=== PATIENT | male | born 1955 ===

== ENCOUNTER 2019-05-16 08:39 | Day surgery (SDC) | payer MEDICAID ==
[2019-05-16] MEDS ORDERED: Propofol 200 MG/20 ML SDV ONE ×2 (08:53→10:45)
[2019-05-16] MEDS ORDERED: fentaNYL 100 MCG/2 ML SDV ONE (08:53)
[2019-05-16] MEDS ORDERED: Midazolam 1 MG/ML 2 ML SDV ONE (08:53)
[2019-05-16] MEDS ORDERED: Lactated Ringers 1,000 ML IV SCH (09:15)
--- NOTE | 2019-05-16 15:22 | OR ---
DATE OF PROCEDURE: 05/16/2019 SURGEON: Filipe Locke MD PREOPERATIVE DIAGNOSIS: History of colon polyps. POSTOPERATIVE DIAGNOSIS: Polyps at 10 cm from the anal verge. PROCEDURES PERFORMED: Colonoscopy to the cecum with snare cautery polypectomy and biopsy resection of polyps at 10 cm from the anal verge. ANESTHESIA: IV anesthesia with monitored anesthesia care. INDICATION: This 63-year-old white male is referred for a colonoscopy because of a history of colon polyps. He says his last colonoscopic exam was done 3 years ago. I counseled him for the procedure, including risks and alternatives, and he gave his informed consent to proceed. DESCRIPTION OF PROCEDURE: The patient was placed in the left lateral decubitus position. IV anesthesia was administered by the anesthesia service. Time-out was held. A rectal exam was performed, which was unremarkable. The flexible video Olympus colonoscope was introduced through his anus, up his rectum and out his colon, all the way to the cecum. Once the cecum was reached, the scope was slowly withdrawn, examining the mucosa throughout. No mucosal abnormalities were noted until we reached 10 cm from the anal verge. Here, we saw a moderate-sized polyp. We initially placed a snare about its base. It was elevated up away from the bowel wall and amputated as electrocautery was applied. There was some residual polypoid material present, which we then removed with the biopsy forceps. Adjacent to this, there was another small polyp, which we removed with the biopsy forceps and sent to the laboratory with the first polyp, as they were right next to each other. The scope was retroflexed in the rectum with the distal rectum appearing unremarkable. The scope was straightened and removed. He tolerated the procedure well. Filipe Locke MD /[id number]
== END 2019-05-16 12:30 | disposition home or self-care (01) ==
LOC: JP.SDS 08:39
PROVIDERS: ATTEND Surgery
DX: Z12.11 Encounter for screening for malignant neoplasm of colon (principal); D12.8 Benign neoplasm of rectum; Z88.1 Allergy status to other antibiotic agents; Z86.010 Personal history of colon polyps
CPT/HCPCS: 45380; 45385; J2250; J2704; J3010; J7120; 88305